=== PATIENT | male | born 1955 | race Caucasian/White ===

== ENCOUNTER 2019-12-03 13:04 | Outpatient (CLI) | payer MEDICARE, BC, SELFPAY ==
--- NOTE | 2019-12-03 13:16 | MR_ITS ---
WS: [id number] MRI RIGHT KNEE NONCONTRAST TECHNIQUE: Axial PD, coronal PD fat sat, coronal PD, sagittal PD, and sagittal PD fat-sat images obta ined. CLINICAL INFORMATION: PAIN IN R KNEE COMPARISON: None. FINDINGS: Normal anterior cruciate ligament. Normal PCL. Hypertrophic patella. Distal quadriceps and patella te ndons are intact. Prepatellar and infrapatellar soft tissue edema. Small radial tear involving the an terior horn lateral meniscus extending to the articular surface. Medial meniscus is normal in appeara nce. Moderate chondromalacia patella. Narrowing of patellofemoral articulation. No subchondral edema in th e underlying patella. Medial and lateral collateral ligaments are normal. Normal popliteal fossa. MR/MR knee RT wo con* [id number] IMPRESSION: 1. Normal anterior and posterior cruciate ligaments. 2. Small radial tear involving the anterior horn lateral meniscus extending to the articular surface with mild blunting. 3. Moderate chondromalacia patella with narrowing of the patellofemoral articu lation. No subchondral edema. 4. Moderate chondromalacia involving the medial and lateral joint compartments with joint space narrowing.
== END 2019-12-03 13:05 | disposition home or self-care (01) ==
LOC: RADWPI 13:15
PROVIDERS: Family Provider Physician Assistant Medical; PCP Nurse Practitioner Family; Visit Provider Nurse Practitioner Family
DX: M25.561 Pain in right knee (principal); M22.41 Chondromalacia patellae, right knee; S83.281A Other tear of lateral meniscus, current injury, right knee, initial encounter; X58.XXXA Exposure to other specified factors, initial encounter
CPT/HCPCS: 73721

== ENCOUNTER 2019-12-15 08:33 | Outpatient (CLI) | payer MEDICARE, SELFPAY ==
--- NOTE | 2019-12-15 | USCV_ITS ---
SairaJose D Age: 64 Gender: M : 1955 Exam Date: 12/15/2019 09:03 Ordering Phys: Debora Marie Technologist: Yennifer Brooks Exam Location: [facility] – [place] Indication: ? AAA ON XRAY HISTORY: Diameter (cm) AP x Transverse x Length Velocity (cm/s) Waveform Prox Aorta: 1.86 x 1.55 x 1.70 Mid Aorta: 1.55 x 1.69 x 1.66 Distal Aorta: 1.89 x 1.69 x 1.50 Right Iliac Prox: x x Left Iliac Prox: x x Stent Prox Landing x x Aneurysmal Sac Max x x Lt Lat Sac Dim Rt Lat Sac Dim Stent Dist Landing x x Right Iliac Stent x x Left Iliac Stent x x Right Renal Art Left Renal Art FINDINGS: Technically limited exam CONCLUSIONS No evidence of abdominal aortic aneurysm. Iliac arteries not well visualized. Everette Turcios MD (Electronically Signed) Final Date: 15 December 2019 09:28 S
== END 2019-12-15 08:34 | disposition home or self-care (01) ==
PROVIDERS: Family Provider Physician Assistant Medical; PCP Nurse Practitioner Family; Visit Provider Nurse Practitioner Family
DX: I77.9 Disorder of arteries and arterioles, unspecified (principal)
CPT/HCPCS: 76706

== ENCOUNTER 2019-12-29 06:00 | Outpatient (RCR) | payer MEDICARE, SELFPAY | END 2020-01-01 23:59 | disposition home or self-care (01) | LOC: WPT 06:00 | PROVIDERS: Family Provider Physician Assistant Medical; PCP Nurse Practitioner Family; Referring Provider Nurse Practitioner Family; Visit Provider Nurse Practitioner Family | DX: M54.9 Dorsalgia, unspecified (principal) | CPT/HCPCS: 97110; 97163; G0283 ==

== ENCOUNTER 2020-01-02 06:00 | Outpatient (RCR) | payer MEDICARE, SELFPAY | END 2020-02-01 23:59 | disposition home or self-care (01) | LOC: WPT 06:00 | PROVIDERS: Family Provider Physician Assistant Medical; PCP Nurse Practitioner Family; Referring Provider Nurse Practitioner Family; Visit Provider Nurse Practitioner Family | DX: G89.29 Other chronic pain (principal); M54.9 Dorsalgia, unspecified | CPT/HCPCS: 97110; 97112; 97163; G0283 ==

== ENCOUNTER 2020-02-02 06:00 | Outpatient (RCR) | payer MEDICARE, SELFPAY | END 2020-03-02 23:59 | disposition home or self-care (01) | LOC: WPT 06:00 | PROVIDERS: PCP Nurse Practitioner Family; Visit Provider Nurse Practitioner Family | DX: M54.9 Dorsalgia, unspecified (principal) | CPT/HCPCS: 97110; 97112 ==

== ENCOUNTER 2020-03-03 06:00 | Outpatient (RCR) | payer MEDICARE, SELFPAY | END 2020-04-02 23:59 | disposition home or self-care (01) | LOC: WPT 06:00 | PROVIDERS: PCP Nurse Practitioner Family; Visit Provider Nurse Practitioner Family | DX: M54.9 Dorsalgia, unspecified (principal) | CPT/HCPCS: 97110 ==

== ENCOUNTER 2020-05-24 08:27 | Outpatient (CLI) | payer MEDICARE, OTHER, SELFPAY ==
--- NOTE | 2020-05-24 08:50 | MR_ITS ---
WS: [id number] MRI LUMBAR SPINE NONCONTRAST HISTORY: CHRONIC LOW BACK PAIN COMPARISON: None available. TECHNIQUE: Sagittal and axial multisequence imaging is submitted. Mild narrowing of the cervical canal the C6 level due to osteophyte disease and facet arthritis. Mild increase in thoracic kyphosis. 5 lumbar type vertebral bodies and the S1 vertebral body is lumbarized. This numbering pattern will b e important if surgery is ever contemplated in this patient. Mild disc space narrowing and desiccatio n throughout the cervical spine. The S1-S2 disc is rudimentary. No fractures. Hypertrophic osteophytes throughout the lumbar spine. Conus terminates normally at L1-2 disc level. L1-L2: Mild annular disc bulging and facet arthritis. No stenosis. L2-L3: Mild annular disc bulging and osteophytic ridging. Mild bilateral facet joint arthritis, LEFT greater than RIGHT. Mild LEFT foraminal narrowing. L3-L4: Mild annular disc bulging with moderate facet and ligamentum flavum arthritis. No significant stenosis. L4-L5: Mild annular disc bulging with far LEFT foraminal disc fissures. Mild bilateral facet joint ar thritis. Small amount of fluid in the LEFT facet joint. Mild bilateral foraminal narrowing, LEFT grea ter than RIGHT. L5-S1: Severe facet joint arthritis with annular disc bulging. No focal disc protrusion. Moderate mariana tral and subarticular recess stenosis. Foramen are only minimally narrowed. Significant encroachment upon the S1 nerve roots. S1-S2 disc space is rudimentary. There is annular disc bulging and marked facet arthritis. Disc osteo phyte complex extends into the LEFT subarticular recess and abuts the S2 nerve root. Moderate central , foraminal and subarticular recess stenosis. MR/MR lumbar spine wo con* [id number] IMPRESSION: 1. 5 lumbar type vertebral bodies with the S1 vertebral body being lumbarized with a rudimentary S1-S2 disc. 2. Moderate central, and bilateral subarticular recess stenosis at L5-S1 with significant encroachment upon the S1 nerve roots. 3. Moderate central, foraminal and subarticular recess stenosis at S1-S2 with a disc protrusion into the LEFT subarticular recess. 4. Multilevel facet joint arthritis throughout the lumbar spine as described a geraldo. Most significant at L5-S1 and S1-S2.
== END 2020-05-24 08:28 | disposition home or self-care (01) ==
LOC: RADWPI 08:33
PROVIDERS: PCP Nurse Practitioner Family; Visit Provider Nurse Practitioner Family
DX: M54.5 Low back pain (principal); M48.07 Spinal stenosis, lumbosacral region; M46.96 Unspecified inflammatory spondylopathy, lumbar region
CPT/HCPCS: 72148

== ENCOUNTER → 2020-06-29 08:31 | Outpatient (BNVA) | payer MEDICARE, OTHER, SELFPAY | PROVIDERS: PCP Nurse Practitioner Family; Visit Provider Orthopaedic Surgery | DX: M54.9 Dorsalgia, unspecified (principal) | CPT/HCPCS: 72100 ==

== ENCOUNTER → 2020-07-13 08:54 | Outpatient (BNVA) | payer MEDICARE, OTHER, SELFPAY | PROVIDERS: PCP Nurse Practitioner Family; Referring Provider Orthopaedic Surgery; Visit Provider Anesthesiology Pain Medicine | DX: G89.29 Other chronic pain (principal); M48.062 Spinal stenosis, lumbar region with neurogenic claudication; M47.816 Spondylosis without myelopathy or radiculopathy, lumbar region; M54.2 Cervicalgia; Z79.899 Other long term (current) drug therapy | CPT/HCPCS: 99204 ==

== ENCOUNTER → 2020-07-19 12:05 | Outpatient (BNVA) | payer MEDICARE, OTHER, SELFPAY | PROVIDERS: PCP Nurse Practitioner Family; Visit Provider Anesthesiology Pain Medicine | DX: M48.062 Spinal stenosis, lumbar region with neurogenic claudication (principal); M54.16 Radiculopathy, lumbar region | CPT/HCPCS: 64483; 64484; J1040; J3490 ==

== ENCOUNTER → 2020-08-03 10:17 | Outpatient (BNVA) | payer MEDICARE, OTHER, SELFPAY | PROVIDERS: PCP Nurse Practitioner Family; Visit Provider Anesthesiology Pain Medicine | DX: M48.062 Spinal stenosis, lumbar region with neurogenic claudication (principal); M47.816 Spondylosis without myelopathy or radiculopathy, lumbar region; M54.2 Cervicalgia | CPT/HCPCS: 99213; 99214 ==

== ENCOUNTER → 2020-08-11 13:13 | Outpatient (BNVA) | payer MEDICARE, OTHER, SELFPAY | PROVIDERS: PCP Nurse Practitioner Family; Visit Provider Anesthesiology Pain Medicine | DX: M54.16 Radiculopathy, lumbar region (principal); M48.062 Spinal stenosis, lumbar region with neurogenic claudication | CPT/HCPCS: 64483; 64484; J1040; J3490 ==

== ENCOUNTER → 2020-09-15 10:44 | Outpatient (BNVA) | payer MEDICARE, OTHER, SELFPAY | PROVIDERS: PCP Nurse Practitioner Family; Visit Provider Orthopaedic Surgery | DX: Z11.59 Encounter for screening for other viral diseases (principal); M48.062 Spinal stenosis, lumbar region with neurogenic claudication | CPT/HCPCS: 87635 ==

== ENCOUNTER 2020-09-22 13:04 | Inpatient (IN) | payer MEDICARE, OTHER, SELFPAY ==
[2020-09-20 12:58] VITALS: BMI 38.3
--- NOTE | 2020-09-20 13:13 | ANES.PREANE2 ---
Pre-Anesthetic Assessment Pre-Anesthetic Assessment: Height/Weight: Height 1.8 m Weight 124.738 kg Preop Diagnosis: back pain Proposed Procedure: Operation Date: 09/22/20 07:00 Proposed Procedures p Spinal Fusion L4/5 L5/S1 PLIF [id number], 42219, 81769, 51454, 00513, 15083(Not Applicable) - Uziel Carlos DO Familial anesthetic complications: None Social: Comment: Former smoker - quit 26 years ago Pulmonary: Pulmonary: COPD and Sleep apnea (cpap) Comments: COPD - placed on inhalers 6-7 years, saw his PCP on Sunday and she added different inhaler (wixela inhub - fluticasone/salmeterol) to help build his lungs up. Patient is not on oxygen. Patient is able to walk up a couple flights of stairs ok, but requires use of handrail d/t knee pain. He gets moderately out of breath with 2 flights. Able to feed goats, chickens, dogs at home. States his COPD has been about baseline for 2 years with no significant increase in symptoms. No recent respiratory infections, viruses, colds, pneumonia (last pneumonia 35 years ago). CV/HEM: CV/HEM: HTN and KY (approximately 25 years ago he had alight heart attack) Comments: Denies chest pains, no stents in heart, no balloon angioplasties, his [place] just showed up on an EKG. So he quite smoking. EKG on sunday at PCP - Everything looked good. Metabolic: Metabolic: Morbid obesity Musc/skel: Musc/skel: Lower Back Pain and OA/DJD Anesthetic Plan: ASA status: 3 Anesthesia: General Other: Patient educated on higher risk of requiring post-op ventilation and respiratory events intra-op with COPD. He states he would like to proceed. He has relatively good functional status, is not on oxygen, and no longer smokers. Informed patient to continue to use inhalers up to the morning of surgery. Risk of > 500 ml blood loss (7ml/kg in children): Yes, adequate IV access and fluids planned PFSH Anesthesia PFSH: Social History Smoking and tobacco status: former smoker Alcohol intake: never History of recent travel: No Data Anesthesia Cardiac Studies: No Data to Display
[2020-09-22] VITALS (15 sets, daily range): BP systolic 107–181; BP diastolic 66–84; PULSE 58–78; RESP 16–20; TEMP 36.1–36.6; O2SAT 94–100
--- NOTE | 2020-09-22 | SCC_ITS ---
Procedure Done: 1. L4/5 Interbody fusion with posterolateral fusion 2. L5/S1 PLIF 3. Instrumentation L4-S1 4. Cage at L4/5 5. Cage at L5/S1 6. Laminectomy L4 7. Laminectomy L5 8. use of autograft from same incision 9. allograft 10. Bone marrow aspirate from iliac crest 11. L4/5 Spondylolisthesis 236.9 seconds of fluoroscopic guidance, for a cumulative dose of 315.69 mGy, was provided to Dr. Carlos by the radiology department. C-arm images of the lumbar spine were saved for the patient's permanent record. [facility]
--- NOTE | 2020-09-22 | XR_ITS ---
WS: [id number] Lumbar spine, 4 C-arm fluoroscopy views of the lower lumbar spine in the OR, 09/22/2020 Clinical Data: L4/L5 L5/S1 PLIF Comparison: Lumbar spine, 06/29/2020. Findings: The patient has bilateral lumbar fusion with pedicle screws at L4, L5 and S1. The screws are connecte d with rods. There is artificial disc material at L4-L5 and L5-S1. XR/XR lumbar spine 2-3V* [id number] Impression: Posterior lumbar fusion from L4 through S1.
[2020-09-22] MEDS: sodium chloride 0.9% 1,000 ML 30 ML IV (06:19)
[2020-09-22] MEDS: gabapentin 300 mg Capsule PO (06:20)
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
--- NOTE | 2020-09-22 06:48 | W.PM.OPSUD ---
Surgery/Procedure H&P Update DATE OF PROCEDURE: September 22, 2020 DATE H&P PERFORMED: 09/22/20 PREOP DIAGNOSIS: lumbar stenosis PLANNED PROCEDURE: Operation Date: 09/22/20 07:00 Proposed Procedures p Spinal Fusion L4/5 L5/S1 PLIF [id number], 84730, 18395, 26566, 98140, (Not Applicable) - Uziel Carlos DO
[2020-09-22] MEDS: heparin, porcine 1,000 unit/mL INJ 10 mL 10000 UNIT IRRIGATION (08:17)
[2020-09-22] MEDS: vancomycin 1,000 MG SDV 1000 MG XX (11:37)
--- NOTE | 2020-09-22 12:49 | SUR.PHASEI ---
PT AWAKE ALERT ON 3LNC PT IS TALKING NONSTOP, DENIES PAIN , PT WITH DRESSING D/I ABD BINDER
--- NOTE | 2020-09-22 13:15 | SUR.PHASEI ---
1255 PT TO FLOOR PER BED DRESSING REMAINS D/I ABD BINDER IN PLACE PT AWKE ALERT LAUGHING TALKING NON STOP, DENIES PAIN PT MOVES BILAT FEET STRONGLY TO COMMAND DRAIN COMPRESSED AND EMPTIED EARLIER OF 100ML SANGUINEOUS FLUID. HANDOFF AT BEDSIDE WITH EILEEN MYLES. CALLED AND IS ON HER WAY UP TO ROOM.
[2020-09-22] MEDS: HYDROcodone-acetaminophen 5-325 mg Tablet PO ×2 (15:06→22:03)
--- NOTE | 2020-09-22 16:12 | PM.OP ---
Operative Report Date of procedure: September 22, 2020 Pre-op Diagnosis: lumbar stenosis; Lumbar spondylolisthesis L4/5 Post-op diagnosis: same Procedure Done: 1. L4/5 Interbody fusion with posterolateral fusion 2. L5/S1 PLIF 3. Instrumentation L4-S1 4. Cage at L4/5 5. Cage at L5/S1 6. Laminectomy L4 7. Laminectomy L5 8. use of autograft from same incision 9. allograft 10. Bone marrow aspirate from iliac crest 11. L4/5 Spondylolisthesis Surgeon: Uziel Carlos Anesthesia: General Estimated blood loss (mL): 600 Condition: stable Disposition: PACU Procedure: 1. L4/5 Interbody fusion with posterolateral fusion 2. L5/S1 PLIF 3. Instrumentation L4-S1 4. Cage at L4/5 5. Cage at L5/S1 6. Laminectomy L4 7. Laminectomy L5 8. use of autograft from same incision 9. allograft 10. Bone marrow aspirate from iliac crest 11.L4/5 Spondylolisthesis Patient was brought to the operative suite placed in the prone position after undergoing anesthesia and having neuro monitoring hooked up. All areas impingement well-padded. Patient was prepped and draped in normal sterile fashion. Skin incision was made from L4-S1. These levels were confirmed under C-arm guidance. Thoracolumbar fascia was split and then subperiosteal dissection was made from L4 out to the transverse processes down to S1 out to the sacral ala. Retractors were placed. Tension was then placed on putting in the pedicle screws. Drill was used followed by gearshift followed by pedicle probe this was done on all levels 2 screws were placed at L4 2 screws were placed at L5 and 2 screws were placed into the sacral ala cortical screws were placed in S1. The screws were all six 5 x 50 [place] screws. Next attention was brought to the L5-S1 level. A laminectomy was performed at L5. This was done in order to facilitate decompressing the S1 nerve. The laminectomy was performed using high-speed bur Kerrison rongeurs and curettes. Ligamentum flavum was taken down from L5-S1. Next attention was brought to doing laminectomy performed at the L for level. High-speed bur was used along with Kerrison rongeur. Once laminectomy was taken down at L4 and L5. The laminectomy again was also performed for decompression of the L5 nerve root. Bone graft was used taken from the laminectomy sites. This was the autograft that was used in the bone graft. Facetectomies of L4-5 and L5-S1 were performed bilaterally. This is again used using high-speed bur and Kerrison rongeur. This was on the right side and then on the left side partial facetectomy was performed but 75% of the facet was taken down in order to facilitate placing the cages. Edges brought to the L5-S1 level first. Disc was identified the S1 nerve root was retracted L5 nerve root was identified bipolar was used to coagulate bleeding. The space was identified osteotome was used to get into the disc space at L5-S1. And then up to a size shaver 7 shaver was used. Pituitary was used to remove the disc fragments. Once disk removed osteoamp sponges were packed into the disc base. And then a Evans cage was packed into the disc base this cage was packed with osteoamp. C-arm ensured that the disc cage was in appropriate position. It was brought to the L4-5 level again partial facetectomy was performed about 75% of the facet. And the disc base was identified bipolar was used to clear the bleeding vessels. Nerve retractor was placed the L4 and L5 nerve were identified and tommie were used up to size 10. Size 10 cage was packed with osteoamp. Prior to placing the cage osteamp sponges were packed into the anterior part of the disc base. And then the cage was inserted into the L4-5 disc space. The cage was then inserted. And felt to be in preposition based on C-arm guidance. Next attention was brought to placing the rods from L4-S1. This is done by placing rods in the [place] of L4-L5 and S1 caps were then placed onto the screws. This was done bilaterally. The caps were then torqued down. Next attention was brought to decorticating the TPs and facet joints. The ostium fibers and autograft and ostium sponges were then packed into the lateral gutters. Some bank powder was placed into this area as well. A Hemovac drain was placed. And then the thoracolumbar fascia was closed with strata fear 0 suture. Subcu was closed with 2 oh strata sphere powder was placed in this level. And then the skin was closed with 4 oh strata sphere and the mesh glue was put on the incision. Patient was then transferred to the PACU in stable condition.
--- NOTE | 2020-09-22 16:29 | PC.NURSE ---
OUTPUT THIS NURSE EMPTIED 200ML OF BLOOD FROM PATIENT'S HEMOVAC. THIS NURSE CALLED DR. IZAGUIRRE AND LEFT A MESSAGE ON HIS PHONE.
[2020-09-22] MEDS: docusate sodium 100 mg Capsule PO (17:34)
[2020-09-22] MEDS: methocarbamol 750 mg Tablet PO (17:34)
[2020-09-22] MEDS: gabapentin 300 mg Capsule 1500 MG PO (17:34)
[2020-09-22] MEDS: sulfaSALAzine 500 mg Tablet 1000 MG PO ×2 (17:34→20:39)
--- NOTE | 2020-09-22 18:24 | P.CONIM_ITS ---
Providers/Reason For Consult Consulting Physican/Specialty*: Orthopedic surgery Reason for Consult*: Medical Management Attending Physician: Uziel Carlos DO Primary Care Provider: Debora Marie History of Present Illness History of Present Illness 65-year-old male with a past medical history significant for hypertension, hyperlipidemia, chronic obstructive pulmonary disease, neuropathy, depression and lumbar stenosis who was admitted to orthopedic surgery and taken to the OR. Medicine was consulted postop for medical management. patient was stable at time of my evaluation. Pain was under control. No recent fever, chills, nausea vomiting. Review of Systems General: Reports: 10 or more systems reviewed and unremarkable except in HPI and below Meds/Allergies Home Medications and Allergies Home Medications Medication Instructions Recorded Confirmed Last Taken Type amlodipine 10 mg tablet 10 mg PO DAILY 06/29/20 09/22/20 09/22/20 03:00 History atorvastatin 40 mg tablet 40 mg PO DAILY 06/29/20 09/22/20 09/21/20 History clonazepam 1 mg tablet 1 mg PO .prn tab 06/29/20 09/22/20 09/21/20 06:00 History diphenoxylate-atropine 2.5 10 ml PO BID PRN 06/29/20 09/22/20 09/21/20 History mg-0.025 mg/5 mL oral liquid adalimumab 40 mg/0.8 mL 40 mg SUBCUT Q14D 07/13/20 09/22/20 09/14/20 History subcutaneous pen kit albuterol sulfate 90 mcg/actuation 1 inh INHALATION QID 07/13/20 09/22/20 09/14/20 History aerosol inhaler gabapentin 600 mg tablet 1,500 mg PO BID tab 07/13/20 09/22/20 09/21/20 19:00 History hydrochlorothiazide 25 mg tablet 25 mg PO DAILY 07/13/20 09/22/20 09/21/20 History methocarbamol 750 mg tablet 750 mg PO Q8H 07/13/20 09/22/20 09/21/20 History metoprolol tartrate 25 mg tablet 25 mg PO DAILY 07/13/20 09/22/20 09/22/20 03:00 History sulfasalazine 500 mg tablet 1 g PO QID tab 07/13/20 09/22/20 09/21/20 History E0748 Bone Growth Stimulator #1 ea 08/17/20 08/17/20 Unknown Rx aspirin [Aspir-81] 81 mg PO DAILY 09/20/20 09/22/20 09/19/20 History azathioprine 300 mg PO DAILY 09/20/20 09/22/20 09/21/20 History ergocalciferol (vitamin D2) 1,250 mcg PO DAILY 09/20/20 09/22/20 09/21/20 History [Vitamin D2] fluoxetine 40 mg PO DAILY 09/20/20 09/22/20 09/21/20 History folic acid 1 mg PO DAILY 09/20/20 09/22/20 09/21/20 12:00 History loratadine 10 mg PO DAILY 09/20/20 09/22/20 09/21/20 History losartan 100 mg PO DAILY 09/20/20 09/22/20 09/22/20 03:00 History montelukast 10 mg PO DAILY 09/20/20 09/22/20 09/21/20 History omega-3 fatty acids [Fish Oil] 1,000 mg PO DAILY 09/20/20 09/22/20 07/23/20 History spironolactone 25 mg PO DAILY 09/20/20 09/22/20 09/21/20 History tiotropium bromide [Spiriva with 1 cap INHALATION DAILY 09/20/20 09/22/20 09/14/20 History HandiHaler] triamcinolone acetonide 1 applic TOPICAL BID 09/20/20 09/22/20 Unknown History Allergies Allergy/AdvReac Type Severity Reaction Status Date / Time No Known Allergies Allergy Verified 08/17/20 09:40 Current Medications Current Medications Generic Name Dose Route Start Last Admin Trade Name Freq PRN Reason Stop Dose Admin Hydrocodone Bitart/Acetaminophen 1 - 2 tab 09/22/20 13:36 09/22/20 15:06 Hydrocodone-Acetaminophen 5-325 Mg Tablet PO 1 tab Q4H PRN Administration MODERATE TO SEVERE PAIN Docusate Sodium 100 mg 09/22/20 18:00 09/22/20 17:34 Docusate Sodium 100 Mg Capsule PO 100 mg BID JAVID Administration Gabapentin 1,500 mg 09/22/20 18:00 09/22/20 17:34 Gabapentin 300 Mg Capsule PO 1,500 mg BID JAVID Administration Cefazolin Sodium/Dextrose 2 gm in 50 mls @ 100 mls/hr 09/22/20 19:00 09/22/20 17:33 Kefzol IV 09/23/20 11:29 100 mls/hr Q8H JAVID Administration Protocol Methocarbamol 750 mg 09/22/20 17:00 09/22/20 17:34 Methocarbamol 750 Mg Tablet PO 750 mg Q8H JAVID Administration Non-Formulary Medication 40 mg 09/22/20 13:45 09/22/20 15:04 Adalimumab [Humira Pen Irvnuf-Af-Xg Start] SUBCUT Not Given Q14D JAVID Sulfasalazine 1,000 mg 09/22/20 17:00 09/22/20 17:34 Sulfasalazine 500 Mg Tablet PO 1,000 mg QID JAVID Administration Protocol PFSH Acute PFSH: Medical History (Updated 09/22/20 @ 18:30 by Melvin Reyes MD) COPD (chronic obstructive pulmonary disease) Depression Hyperlipidemia Hypertension Neuropathy Surgical History (Updated 09/22/20 @ 18:30 by Melvin Reyes MD) History of back surgery Social History Smoking and tobacco status: former smoker Alcohol intake: never History of recent travel: No Vitals/I&O/Wt Last Vital Signs Temp 97.8 F 09/22/20 15:15 Pulse 67 09/22/20 15:15 Resp 16 09/22/20 15:15 BP 142/84 09/22/20 15:15 Pulse Ox 97 09/22/20 15:15 09/22/20 09/22/20 09/22/20 06:59 14:59 22:59 Intake Total 1750 / 1750 Output Total 1350 / 1350 300 / 1650 Balance 400 / 400 -300 / 100 Physical Exam Const: COMMON NORMALS: no acute distress Neck/C-Spine: COMMON NORMALS: no JVD Chest: COMMONS NORMALS: normal inspection of the chest Resp: COMMON NORMALS: normal respiratory effort, No retractions, No use of accessory muscles and clear to auscultation bilaterally AUSCULTATION: clear to auscultation bilaterally Cardio: COMMON NORMALS: no JVD, regular rate, regular rhythm, S1 normal heart sound present, S2 normal heart sound present and No murmurs present (Cardio) RATE: regular rate RHYTHM: regular rhythm HEART SOUNDS: S1 normal heart sound present and S2 normal heart sound present GI: COMMON NORMALS: Normal to inspection, nondistended, normoactive bowel sounds present, Soft to palpation, non-tender and No hepatosplenomegaly present PALPATION: Yes Soft to palpation and Yes No hepatosplenomegaly present Extremity: COMMON NORMALS: normal to inspection Urinary Catheter Management^: F: Cath Placed During This Visit: yes Urinary Catheter Date of Insertion: 09/22/20 Urinary Catheter Time of Insertion: 07:30 A&P Assessment and plan (1) Hypertension: Status: Acute (2) Hyperlipidemia: Status: Acute (3) COPD (chronic obstructive pulmonary disease): Status: Acute (4) Neuropathy: Status: Acute (5) Depression: Status: Acute Lumbar stenosis S/p - operative procedure 1. L4/5 Interbody fusion with posterolateral fusion 2. L5/S1 PLIF 3. Instrumentation L4-S1 4. Cage at L4/5 5. Cage at L5/S1 6. Laminectomy L4 7. Laminectomy L5 8. use of autograft from same incision 9. allograft 10. Bone marrow aspirate from iliac crest 11. L4/5 Spondylolisthesis - Managment per orthopedic surgery - Pain control - PT/OT consult Hypertension Dyslipidemia COPD Neuropathy Anxiety Depression Plan: Labs in AM Continue current medication as ordered Consult Attestations Medical Necessity Statement: Continue hospitalization for routine post op care. Time Spent in Patient Care: Greater than 35 minutes (>than 50% of time spent in counselling and/or direct pt care on unit) . Coding Level of Care Code Acute Developer Architect for [facility] Fwd Diagnoses Hypertension I10 Hyperlipidemia E78.5 COPD (chronic obstructive pulmonary disease) J44.9 Neuropathy G62.9 Depression F32.9
--- NOTE | 2020-09-22 18:31 | ANE.PACU2 ---
Inpatient post-anesthesia follow up: Airway intact: Yes Vital signs: Temperature 97.8 F Pulse Rate 67 Respiratory Rate 16 Blood Pressure 142/84 Pulse Oximetry 97 Oxygen Delivery Me thod Nasal Cannula Oxygen Flow Rate 3 Fraction of Inspir ed Oxygen Hydration adequate: Yes Nausea and vomiting: No Pain level: 3 Mental status: Baseline
[2020-09-22] MEDS: ondansetron 2 mg/ML SDV 2 mL 4 MG IVP (18:41)
--- NOTE | 2020-09-22 18:44 | PC.NURSE ---
SHIFT SUMMARY PATIENT HAS DONE WELL SINCE ARRIVING TO THE FLOOR. GOOD URINE OUTPUT. VITALS STABLE. PATIENT HAS HAD 350ML OF BLOOD OUTPUT IN THE HEMOVAC. DR. IZAGUIRRE NOTIFIED. NAUSEA X1. THIS NURSE ADMINISTERED ZOFRAN. PAIN WELL CONTROLLED. CONTINUE TO MONITOR.
[2020-09-23] VITALS (10 sets, daily range): BP systolic 121–126; BP diastolic 72–77; PULSE 77–90; RESP 16–18; TEMP 36.6–37.2; O2SAT 92–96
[2020-09-23] MEDS: methocarbamol 750 mg Tablet PO ×2 (02:11→08:04)
[2020-09-23 02:37] LABS: Basophils % 0.3 %; Eosinophils % 0.1 %; Hematocrit 35.4 % (42.0-52.0); Lymphocytes # 1.8 10^3/uL (0.8-4.8); Lymphocytes % 14.6 %; Mean Corpuscular HGB Conc 31.1 g/dL (30.0-36.0); Mean Corpuscular Hemoglobin 32.5 pg (28.0-34.0); Mean Corpuscular Volume 104.7 fL (80-94); Mean Platelet Volume 11.1 fL (7.4-10.4); Monocytes # 1.2 10^3/uL (0.2-0.9); Monocytes % 9.8 %; Neutrophils # 9.33 10^3/uL (1.8-7.7); Neutrophils % 74.6 %; Nucleated Red Blood Cells % 0 %; Platelet Count 202 10^3/cmm (130-400); Red Blood Count 3.38 10^6/uL (4.1-5.3); Red Cell Distribution Width 14.2 % (12.1-15.1); White Blood Count 12.5 10^3/uL (4.0-10.0)
[2020-09-23 02:55] LABS: Alanine Aminotransferase 18 U/L (0-41); Albumin Level 3.8 g/dL (3.5-5.2); Alkaline Phosphatase 46 IU/L (40-130); Aspartate Amino Transferase 31 U/L (0-40); Blood Urea Nitrogen 26 mg/dL (8-23); Calcium 8.3 mg/dL (8.5-10.5); Carbon Dioxide 24 mmol/L (22-29); Chloride 102 mmol/L (98-107); Globulin 2.3 g/dL (1.3-4.6); Glomerular Filtration Rate 74.8 mL/min (90-130); Glucose 137 mg/dL (65-115); Osmolality Calculated 287 mOsm/kg (285-295); Sodium 135 mmol/L (136-145); Total Bilirubin 0.5 mg/dL (0.15-1.2); Total Protein 6.1 g/dL (6.6-8.7)
[2020-09-23 03:06] LABS: Anion Gap 13.4 (5-19); Potassium 4.4 mmol/L (3.5-5.1)
[2020-09-23] MEDS: enoxaparin 40 mg/0.4 mL Syringe SUBCUT (05:20)
[2020-09-23] MEDS: HYDROcodone-acetaminophen 5-325 mg Tablet PO ×2 (05:23→10:53)
[2020-09-23] MEDS: atorvastatin 40 mg Tablet PO (08:03)
[2020-09-23] MEDS: sulfaSALAzine 500 mg Tablet 1000 MG PO (08:03)
[2020-09-23] MEDS: omega-3 fatty acids 1,000 mg Capsule 1000 MG PO (08:03)
[2020-09-23] MEDS: losartan 50 mg Tablet 100 MG PO (08:04)
[2020-09-23] MEDS: montelukast sodium 10 mg Tablet PO (08:04)
[2020-09-23] MEDS: aspirin 81 mg EC Tablet PO (08:04)
[2020-09-23] MEDS: folic acid 1 mg Tablet PO (08:04)
[2020-09-23] MEDS: docusate sodium 100 mg Capsule PO (08:04)
[2020-09-23] MEDS: fluoxetine 20 mg Capsule 40 MG PO (08:04)
[2020-09-23] MEDS: metoprolol tartrate 25 mg Tablet PO (08:04)
[2020-09-23] MEDS: hydroCHLOROthiazide 25 mg Tablet PO (08:04)
[2020-09-23] MEDS: loratadine 10 mg Tablet PO (08:05)
[2020-09-23] MEDS: spironolactone 25 mg Tablet PO (08:05)
[2020-09-23] MEDS: gabapentin 300 mg Capsule 1500 MG PO (08:05)
[2020-09-23] MEDS: amlodipine 10 mg Tablet PO (08:05)
--- NOTE | 2020-09-23 08:28 | P.DS_ITS ---
Discharge Providers Date of Admission: 09/22/20 13:04 Date of Discharge: September 23, 2020 Attending Provider at Admission: Uziel Carlos DO Attending Provider at Discharge: Uziel Carlos DO Primary Care Provider: Debora Marie Diagnoses at Discharge Discharge Diagnosis (1) Hypertension: Status: Acute (2) Hyperlipidemia: Status: Acute (3) COPD (chronic obstructive pulmonary disease): Status: Acute (4) Neuropathy: Status: Acute (5) Depression: Status: Acute Reason for Visit Reason for Visit: L4/5 L5/S1 PLIF [id number], [id number], [id number], Hospital Course Hospital Course Patient is doing well this morning. He was admitted on 09/22/2020 for a L4-5 L5- S1 plan for surgery. Patient tolerated surgery well. No events. Hemoglobin is 12.5 this morning. Plan is to discharge him today. He can be discharged after his drain is pulled which I said to pull at noon. Physical Exam Narrative: EXAM NARRATIVE: 5 5 strength bilateral lower extremities sensation intact. Drain put out 50 cc this morning. Urinary Catheter Management^: F: Cath Placed During This Visit: yes Urinary Catheter Date of Insertion: 09/22/20 Urinary Catheter Time of Insertion: 07:30 Discharge Data Data Completed and Pending: Completed Studies During Hospitalization Category Date Time Status XR lumbar spine 2 -3V* [id number] Routine Exams 09/22/20 Completed Pending at discharge Category Date Time Status C-arm Fluoroscopy [id number] Routine Exams 09/22/20 05:48 Taken Labs from last 24 hours 09/23/20 09/23/20 02:10 02:10 WBC 12.5 H RBC 3.38 L Hgb 11.0 L Hct 35.4 L MCV 104.7 H MCH 32.5 MCHC 31.1 RDW 14.2 Plt Count 202 MPV 11.1 H Neut % (Auto) 74.6 Lymph % (Auto) 14.6 Cotton % (Auto) 9.8 Eos % (Auto) 0.1 Baso % (Auto) 0.3 Neut # (Auto) 9.33 H Lymph # (Auto) 1.8 Cotton # (Auto) 1.2 H Eos # (Auto) 0.0 Baso # (Auto) 0.0 Nucleated RBC % (a uto) 0 Nucleated RBCs # 0.0 Sodium 135 L Potassium 4.4 Chloride 102 Carbon Dioxide 24 Anion Gap 13.4 BUN 26 H Creatinine 1.0 GFR Calculation 74.8 L Glucose 137 H Calculated Osmolal ity 287 Calcium 8.3 L Total Bilirubin 0.5 AST 31 ALT 18 Alkaline Phosphata se 46 Total Protein 6.1 L Albumin 3.8 Globulin 2.3 Vitals: Last Vital Signs Temp 98.7 F 09/23/20 08:00 Pulse 88 09/23/20 08:00 Resp 18 09/23/20 08:00 BP 124/77 09/23/20 08:04 Pulse Ox 95 09/23/20 08:00 Discharge Plan Discharge Patient Disposition: Home Condition: Stable Prescriptions: New hydrocodone-acetaminophen 5-325 mg tablet 1 - 2 tab PO .Q4-6H Qty: 40 RF: 0 Continued amlodipine 10 mg tablet 10 mg PO DAILY RF: 0 atorvastatin 40 mg tablet 40 mg PO DAILY RF: 0 clonazepam 1 mg tablet 1 mg PO .prn RF: 0 diphenoxylate-atropine 2.5-0.025 mg/5 mL liquid 10 ml PO BID PRN (Reason: Acid Reflux) RF: 0 gabapentin 600 mg tablet 1,500 mg PO BID RF: 0 Humira Pen Cqqzkv-SO-DZ Start 40 mg/0.8 mL pen injector kit 40 mg SUBCUT Q14D RF: 0 hydrochlorothiazide 25 mg tablet 25 mg PO DAILY RF: 0 methocarbamol [Robaxin-750] 750 mg tablet 750 mg PO Q8H RF: 0 metoprolol tartrate 25 mg tablet 25 mg PO DAILY RF: 0 sulfasalazine 500 mg tablet 1 g PO QID RF: 0 albuterol sulfate [ProAir HFA] 90 mcg/actuation HFA aerosol inhaler 1 inh inhalation QID RF: 0 (DME) E0748 Bone Growth Stimulator See Rx Instructions .Route .MEDSUPPLY Qty: 1 RF: 0 fluoxetine 40 mg Capsule 40 mg PO DAILY RF: 0 azathioprine 50 mg tablet 300 mg PO DAILY RF: 0 aspirin 81 mg Tablet,Delayed Release (Dr/Ec) 81 mg PO DAILY RF: 0 spironolactone 25 mg Tablet 25 mg PO DAILY RF: 0 triamcinolone acetonide 0.1 % ointment 1 applic TOPICAL BID RF: 0 folic acid 1 mg Tablet 1 mg PO DAILY RF: 0 montelukast 10 mg Tablet 10 mg PO DAILY RF: 0 ergocalciferol (vitamin D2) [Vitamin D2] 1,250 mcg (50,000 unit) Capsule 1,250 mcg PO DAILY RF: 0 losartan 100 mg Tablet 100 mg PO DAILY RF: 0 loratadine 10 mg Tablet 10 mg PO DAILY RF: 0 omega-3 fatty acids Capsule 1,000 mg PO DAILY RF: 0 Spiriva with HandiHaler 18 mcg Capsule, W/Inhalation Device 1 cap INHALATION DAILY RF: 0 Discharge Orders: Discharge Order (Routine); Ordered 09/23/20 Ordered By: Uziel Carlos Discharge Diet: Advance as tolerated Discharge Activity: Limit activity as instructed Activity Restrictions/Additional Instructions: Thank you for [facility] for your care! The following is a list of instructions, from your provider, to follow upon your discharge to ensure you have the optimal recovery from your recent injury orsurgery. Follow-up care is a moss part of your treatment and safety. Be sure to make and go to all appointments, and call your doctor if you are having problems. If you do not already have a follow-up appointment made, call Dr. Carlos office in the next 1-3 days to make follow up appointment for 2 weeks at [phone]. It is also a good idea to know your test results and keep a list of the medicines you take. Medications will be prescribed for you at your provider's discretion. These medications are to be used as instructed; if they are taken more often that prescribed they will not be refilled early and in most cases will not be refilled at all. > When a refill is needed,you should contact sheila [place] 2-3 business days before your prescription runs out. Medications will NOT be refilled by auto air conditioning apprentice providers after hours! > Many pain medications contain Tylenol (Acetaminophen). Do not consume more than 4,000 mg of Tylenol per day in total with any combination ofmedications. > Pain medications can cause constipation. Please use an over the counter stool softener as directed, while taking pain medications. Consulty our local pharmacist with questions or recommendations on stool softeners. If constipation persists, contact our office or your primary care provider. > While under our care,you are not to receive pain medications or other controlled substances from any other provider unless our office is notified and approves. Any attempts to do so will result in refusal to prescribe any further pain medications and possible dismissal from our practice. ? Your wound and/or dressing should remain clean and dry for 2 days after surgery. On postoperative day 2 (48 hours after your surgery) the dressing (if present) should be removed and it is okay to shower and get the incision wet. Pad dry afterwards. No further dressing should be required from that point on. Do not put any creams or ointments on theincision > It is normal for there to be a small amount of discharge (bloody or blood tinged) present from a surgical wound for the first 1-3days. > The wound should be examined twice a day for signs of infection. Mild redness or bruising is to be expected but indications that an infection maybe starting would include; An increase in redness, swelling, or discharge, a foul odor present around the incision, and/or a fever greater than 101 ?F ? Showering is permitted, however we ask that you do not take a bath, sit in a whirlpool / Jacuzzi, or go swimming for 1 month. For only the first 2 days after surgery, lt wilt be necessary for you to cover your wound/dressing with plastic and tape to keep it dry. ? Walking is essential for the healing process after surgery. We would like you to slowly advance your walking. This should be done on relatively flat clear ground (inside or out) or can be done on a treadmill. Remember this goal does not have to happen all at once, slowly increase your distance and duration. This can be broken into more more than one walk per day as tolerated. Patients who walk as directed after surgery rarely require Physical Therapy. In the unlikely event this issue arises your provider will direct hospital staff to make the appropriate arrangements. ? No lifting over 5 pounds {a gallon of milk) or bending/twisting until further notice. Each of these activities places an unnecessary amount of stress onto the body and can impede the delicate healing process. > Instead of bending at the waist, keep your back straight and bend at the knees. > Instead of twisting your torso, keep your back straight and turn your entire body with your feet. ? You may sleep in any position which makes you comfortable. Many patients find comfort sleeping in a reclining chair. It is not abnormal to have difficulty sleeping for the first several weeks following your surgery. We recommend trying Benadry! or Tylenol PM as directed to help with your sleeping difficulties. Both medications are over the counter and available withoutprescription. ? NO SMOKING!!! Smoking dramatically increases the probability of developing postoperative wound infections. ? Common complaints after lumbar and/or thoracic spine surgery include, but are not limited to: numbness and/or tingling in the legs, pain around the incision and surrounding tissues, muscle spasms, or stiffness of the middle to low back. Contact our office if these symptoms persist or if an acute change occurs. ? No driving for the first 3-5days, and not while taking narcotics until seen at your follow-up appointment and cleared. There are no restrictions for riding on short trips, however if you take a longer trip, arrangements should be made to make regular stops to get out of the vehicle and stretch . ? Swelling is an unfortunate event that will take place with any surgery and is the primary source of your postoperative discomfort. While walking and regular approved activities helps control inflammation, there are additional steps you can take to minimizeswelling. > Place ice over the surgical site and surrounding tissue for twenty minutes, followed by applying a low/medium heat (heating pad) for an additional twenty minutes every 1-2 hours as needed for painrelief. > You may use of over the counter anti-inflammatory medications (Ibuprofen, Motrin, Aleve, Advil, etc) as directed on the package label. These types of medicines wm significantly reduce the amount of discomfort you experience after surgery from swelling. It should be noted that if you have and allergy to any of these medications, or a history of ulcers or kidney disease you should consult you primary care provider prior to starting these medications. Discharge Attestations Time Spent in Discharge Care*: less than 30 min Quality Metrics Clinical Quality Measures During this hospital stay, did patient experience: None Coding Level of Care Code Acute Helicopter Engineer for g Fwd Diagnoses Hypertension I10 Hyperlipidemia E78.5 COPD (chronic obstructive pulmonary disease) J44.9 Neuropathy G62.9 Depression F32.9
[2020-09-23] MEDS: albuterol 8 gm MDI 2 PUFF INHALATION ×2 (08:32→12:07)
--- NOTE | 2020-09-23 10:05 | PC.NURSE ---
contacted pharmacy about imuran. awaiting arrival of med to administer.
--- NOTE | 2020-09-23 11:59 | PC.NURSE ---
drain removed. pt tolerated well.
--- NOTE | 2020-09-23 12:37 | PC.NURSE ---
pt iv taken out and intact. discharge instructions explained and questions answered.
--- NOTE | 2020-09-23 13:36 | PM.PN ---
Subjective Subjective: Interval history: Doing well overnight, no complaints, weaned to RA Vitals/I&O/Wt Last Vital Signs Temp 99.0 F 09/23/20 11:58 Pulse 83 09/23/20 12:12 Resp 16 09/23/20 12:12 BP 121/73 09/23/20 11:58 Pulse Ox 95 09/23/20 12:12 09/22/20 09/23/20 09/23/20 22:59 06:59 14:59 Intake Total 50 / 1800 50 / 1850 720 / 720 Output Total 625 / 1975 250 / 2225 500 / 500 Balance -575 / -175 -200 / -375 220 / 220 Physical Exam Const: COMMON NORMALS: no acute distress Neck/C-Spine: COMMON NORMALS: no JVD Chest: COMMONS NORMALS: normal inspection of the chest Resp: COMMON NORMALS: normal respiratory effort, No retractions, No use of accessory muscles and clear to auscultation bilaterally AUSCULTATION: clear to auscultation bilaterally Cardio: COMMON NORMALS: no JVD, regular rate, regular rhythm, S1 normal heart sound present, S2 normal heart sound present and No murmurs present (Cardio) RATE: regular rate RHYTHM: regular rhythm HEART SOUNDS: S1 normal heart sound present and S2 normal heart sound present GI: COMMON NORMALS: Normal to inspection, nondistended, normoactive bowel sounds present, Soft to palpation, non-tender and No hepatosplenomegaly present PALPATION: Yes Soft to palpation and Yes No hepatosplenomegaly present Extremity: COMMON NORMALS: normal to inspection Urinary Catheter Management^: F: Cath Placed During This Visit: yes Urinary Catheter Date of Insertion: 09/22/20 Urinary Catheter Time of Insertion: 07:30 Data : 09/23/20 02:10 09/23/20 02:10 A&P Assessment and plan (1) Hypertension: Status: Acute (2) Hyperlipidemia: Status: Acute (3) COPD (chronic obstructive pulmonary disease): Status: Acute (4) Neuropathy: Status: Acute (5) Depression: Status: Acute Lumbar stenosis S/p - operative procedure 1. L4/5 Interbody fusion with posterolateral fusion 2. L5/S1 PLIF 3. Instrumentation L4-S1 4. Cage at L4/5 5. Cage at L5/S1 6. Laminectomy L4 7. Laminectomy L5 8. use of autograft from same incision 9. allograft 10. Bone marrow aspirate from iliac crest 11. L4/5 Spondylolisthesis - Managment per orthopedic surgery - Pain control - PT/OT consult Hypertension Dyslipidemia COPD Neuropathy Anxiety Depression Plan: Ok to discharge from medical standpoint Will sign off Attestations Medical Necessity Statement*: Discharged per primary team Time Spent in Patient Care: 16 - 35 minutes (>than 50% of time spent in counselling and/or direct pt care on unit). Coding Level of Care Code Acute Alternative Dispute Resolution Mediator for g Fwd Diagnoses Hypertension I10 Hyperlipidemia E78.5 COPD (chronic obstructive pulmonary disease) J44.9 Neuropathy G62.9 Depression F32.9
--- NOTE | 2020-09-24 12:05 | PC.RESP ---
Pulmonary Rehab information sent to patient.
== END 2020-09-23 13:38 | disposition home or self-care (01) | DRG 455 ==
LOC: MEDSURG 13:05
PROVIDERS: Hospitalist; Admitting Provider Orthopaedic Surgery; PCP Nurse Practitioner Family; Visit Provider Orthopaedic Surgery
PROC: 0SG0071 Fusion of Lumbar Vertebral Joint with Autologous Tissue Substitute, Posterior Approach, Posterior Column, Open Approach (ICD-10-PCS; principal; 2020-09-22 07:00)
DX: M43.16 Spondylolisthesis, lumbar region (principal); M48.062 Spinal stenosis, lumbar region with neurogenic claudication; Z87.891 Personal history of nicotine dependence; I10 Essential (primary) hypertension; E78.5 Hyperlipidemia, unspecified; J44.9 Chronic obstructive pulmonary disease, unspecified; G62.9 Polyneuropathy, unspecified; F32.9 Major depressive disorder, single episode, unspecified; Z79.51 Long term (current) use of inhaled steroids; Z79.82 Long term (current) use of aspirin
CPT/HCPCS: 12345; 36415; 51702; 72100; 76000; 80053; 85025; 94640; 96372; 97116; 97161; 97530; C1713; C9359; G0378; J0131; J0330; J0690; J1100; J1644; J1650; J2270; J2370; J2405; J2704; J3010; J3370; J3490; J3535; J7030

== ENCOUNTER → 2020-11-09 09:56 | Outpatient (BNVA) | payer MEDICARE, OTHER, SELFPAY | PROVIDERS: PCP Nurse Practitioner Family; Visit Provider Orthopaedic Surgery | DX: M48.062 Spinal stenosis, lumbar region with neurogenic claudication (principal); Z48.89 Encounter for other specified surgical aftercare | CPT/HCPCS: 72100 ==

== ENCOUNTER → 2020-12-21 10:22 | Outpatient (BNVA) | payer MEDICARE, OTHER, SELFPAY | PROVIDERS: PCP Nurse Practitioner Family; Visit Provider Orthopaedic Surgery | DX: M48.062 Spinal stenosis, lumbar region with neurogenic claudication (principal); Z48.89 Encounter for other specified surgical aftercare | CPT/HCPCS: 72100 ==

== ENCOUNTER → 2021-03-22 09:28 | Outpatient (BNVA) | payer MEDICARE, SELFPAY | PROVIDERS: PCP Nurse Practitioner Family; Visit Provider Orthopaedic Surgery | DX: M48.062 Spinal stenosis, lumbar region with neurogenic claudication (principal); Z48.89 Encounter for other specified surgical aftercare; M54.9 Dorsalgia, unspecified | CPT/HCPCS: 72100 ==

== ENCOUNTER 2021-08-16 11:52 | Outpatient (CLI) | payer MEDICARE, SELFPAY ==
--- NOTE | 2021-08-16 13:00 | XR_ITS ---
WS: [id number] LUMBAR SPINE: 2 VIEWS TECHNIQUE: AP and lateral, standing. HISTORY: Z48.89 - Encounter for other specified surgical aftercare COMPARISON: 03/22/2021 Mild RIGHT curvature lower thoracic and lumbar spine. Similar to the prior study. Mild increase in the lumbar lordosis. 3 to 4 mm retrolisthesis of L1 and L2. Similar to the prior [facility] dy. Posterior lumbar fusion from L4 to S1 bilaterally with no change in alignment. No fractures within th e hardware. Interbody spacers maintain the disc space at L4-5 and L5-S1. The alignment at L5-S1 is di fficult to evaluate as there is severe loss of the disc space and overlying bony sclerosis. No interv al change is apparent. Laminectomy defects at L4 and L5. SI joints are symmetric bilaterally. No soft tissue abnormalities. Moderate atherosclerosis aorta. XR/XR lumbar spine 2-3V* [id number] IMPRESSION: 1. Stable appearance of the posterior lumbar fusion from L4 to S1 with interbo dy spacers at L4-5 and L5-S1. 2. No hardware fracture. 3. Stable minimal retrolisthesis of L1 and L2.
== END 2021-08-16 11:53 | disposition home or self-care (01) ==
PROVIDERS: PCP Nurse Practitioner Family; Visit Provider Orthopaedic Surgery
DX: Z48.89 Encounter for other specified surgical aftercare (principal); M54.50 Low back pain, unspecified
CPT/HCPCS: 72100

== ENCOUNTER → 2023-06-19 13:00 | Outpatient (BNVA) | payer MEDICARE, MEDICAID, SELFPAY | PROVIDERS: PCP Nurse Practitioner Family; Referring Provider Nurse Practitioner Family; Visit Provider Student in an Organized Health Care Education/Training Program | DX: M17.12 Unilateral primary osteoarthritis, left knee; Z46.89 Encounter for fitting and adjustment of other specified devices; M25.562 Pain in left knee | CPT/HCPCS: 73560; 73565; 97760; 99213; L1851 ==

== ENCOUNTER 2023-06-19 15:19 | Outpatient (CLI) | payer MEDICARE, MEDICAID, SELFPAY | END 2023-06-19 15:20 | disposition home or self-care (01) | LOC: SPT 15:20 | PROVIDERS: PCP Nurse Practitioner Family; Visit Provider Student in an Organized Health Care Education/Training Program | DX: Z46.89 Encounter for fitting and adjustment of other specified devices (principal); M25.562 Pain in left knee | CPT/HCPCS: 97760; 99213; L1851 ==

== ENCOUNTER → 2023-11-16 09:06 | Outpatient (BNVA) | payer MEDICARE, MEDICAID, SELFPAY | PROVIDERS: PCP Nurse Practitioner Family; Visit Provider Podiatrist Foot & Ankle Surgery | DX: L60.3 Nail dystrophy (principal); G62.9 Polyneuropathy, unspecified; B35.3 Tinea pedis; E11.42 Type 2 diabetes mellitus with diabetic polyneuropathy | CPT/HCPCS: 11721; 99203 ==

== ENCOUNTER 2024-09-13 13:45 | Emergency (ER) | payer MEDICARE, MEDICAID, SELFPAY ==
[2024-09-13] VITALS (9 sets, daily range): BP systolic 111–154; BP diastolic 66–91; PULSE 64–88; RESP 16–20; TEMP 36.8; O2SAT 91–98; BMI 41.8
--- NOTE | 2024-09-13 13:56 | XRR_ITS ---
PROCEDURE INFORMATION: Exam: XR Left Ankle Exam date and time: 09/13/2024 2:20 PM Age: 69 years old Clinical indication: Left; Patient HX: Lt ankle pain/deformity post fall TECHNIQUE: Imaging protocol: Radiologic exam of the left ankle. Views: 1 or 2 views. AP and Lateral COMPARISON: CR XR knees AP WB w LT lmt ORTH 06/19/2023 1:03 PM FINDINGS: Bones/joints: Trimalleolar fractures are identified within the ankle. Fractures involving the medial malleolus, posterior malleolus and distal fibula. Medial angulation of the left ankle articulation. Distal tibia is displaced 12 mm medially an approximate 21 mm anteriorly. Multiple comminuted fractures in the distal tibia. Posterior malleolus is displaced by approximately 14 mm. Multiple comminuted fractures involving the distal diaphysis of the fibula with bony displacement measuring up to 15 mm. Adjacent severe edema. Mild to moderate generalized bony degenerative changes. Bony structures appear otherwise unremarkable. Soft tissues: The soft tissues appear otherwise unremarkable. Notes: If there is further concern, recommend follow-up radiographs or MRI for complete assessment. XR/XR ankle LT 2V [id number] IMPRESSION: Trimalleolar ankle fractures, as described above. Severe soft tissue edema.
--- NOTE | 2024-09-13 14:08 | ED_ITS ---
HPI - Extremity Problem General: Chief complaint: Extremity Injury, Lower Stated complaint: L ankle deformity Time Seen by Provider: 09/13/24 13:55 History of Present Illness: 69-year-old male presents emergency room via EMS with obvious deformity to left ankle he fell and he slipped on the ice no other injuries. He is not on any anticoagulants he last ate this morning. Associated symptoms: Deny chest pain or fever(s) Related Data Home Medications Medication Instructions Recorded Confirmed amlodipine 10 mg tablet 10 mg PO DAILY 06/29/20 11/16/23 atorvastatin 40 mg tablet 40 mg PO DAILY 06/29/20 11/16/23 clonazepam 1 mg tablet 1 mg PO .prn 06/29/20 11/16/23 diphenoxylate-atropine 2.5 10 ml PO BID PRN Acid Reflux 06/29/20 11/16/23 mg-0.025 mg/5 mL oral liquid adalimumab 40 mg/0.8 mL 40 mg SUBCUT Q14D 07/13/20 11/16/23 subcutaneous pen kit (Humira Pen Crohn's-[facility] Colitis-[facility] Sup Starter) albuterol sulfate 90 mcg/actuation 1 inh inhalation QID 07/13/20 11/16/23 aerosol inhaler (ProAir HFA) gabapentin 600 mg tablet 1,500 mg PO BID 07/13/20 11/16/23 hydrochlorothiazide 25 mg tablet 25 mg PO DAILY 07/13/20 11/16/23 methocarbamol 750 mg tablet 750 mg PO Q8H 07/13/20 11/16/23 (Robaxin-750) metoprolol tartrate 25 mg tablet 25 mg PO DAILY 07/13/20 11/16/23 sulfasalazine 500 mg tablet 1 g PO QID 07/13/20 11/16/23 aspirin 81 mg tablet,delayed 81 mg PO DAILY 09/20/20 11/16/23 release azathioprine 50 mg tablet 300 mg PO DAILY 09/20/20 11/16/23 ergocalciferol (vitamin D2) 1,250 1,250 mcg PO DAILY 09/20/20 11/16/23 mcg (50,000 unit) capsule (Vitamin D2) fluoxetine 40 mg capsule 40 mg PO DAILY 09/20/20 11/16/23 folic acid 1 mg tablet 1 mg PO DAILY 09/20/20 11/16/23 loratadine 10 mg tablet 10 mg PO DAILY 09/20/20 11/16/23 losartan 100 mg tablet 100 mg PO DAILY 09/20/20 11/16/23 montelukast 10 mg tablet 10 mg PO DAILY 09/20/20 11/16/23 omega-3 fatty acids 1,000 mg PO DAILY 09/20/20 11/16/23 spironolactone 25 mg tablet 25 mg PO DAILY 09/20/20 11/16/23 tiotropium bromide 18 mcg capsule 1 cap inhalation DAILY 09/20/20 11/16/23 with inhalation device (Spiriva with HandiHaler) triamcinolone acetonide 0.1 % 1 applic topical BID 09/20/20 11/16/23 topical ointment clonazepam 0.5 mg tablet 0.25 mg PO BID 06/19/23 11/16/23 escitalopram oxalate 5 mg tablet 5 mg PO DAILY 06/19/23 11/16/23 ferrous gluconate 240 mg (27 mg 240 mg PO DAILY 06/19/23 11/16/23 iron) tablet (Ferate) omega 4-pdh-wga-fish oil 1,000 mg 1 cap PO DAILY 06/19/23 11/16/23 (120 mg-180 mg) capsule (Fish Oil) Previous Rx's Medication Instructions Recorded hydrocodone 5 mg-acetaminophen 325 1 - 2 tab PO .Q4-6H #40 tabs 09/23/20 mg tablet Medial Executive Relations Specialist Brace #1 ea 06/19/23 hyaluronate sodium, stabilized 60 60 mg (3 mL) intra-articular ONCE 06/26/23 mg/3 mL intra-articular syringe #3 mL (Durolane) Diabetic shoes with 3 inserts #1 ea 11/16/23 clotrimazole-betamethasone 1 1 applic topical BID 4 weeks #45 11/16/23 %-0.05 % topical cream grams hydrocodone 5 mg-acetaminophen 325 1 tab PO Q6H PRN pain #20 tabs 09/13/24 mg tablet Allergies Allergy/AdvReac Type Severity Reaction Status Date / Time No Known Allergies Allergy Unknown Verified 11/16/23 09:16 Review of Systems Const: Denies: fever(s) or chills Card: Denies: chest pain Resp: Denies: dyspnea GI: Denies: abdominal pain Musc: Denies: neck pain or back pain [facility] ED PFSH: Medical History Depression Neuropathy COPD (chronic obstructive pulmonary disease) Hypertension Hyperlipidemia Surgical History History of back surgery Social History Alcohol intake: never Substance/Drug Use: never Physical Exam Const: COMMON NORMALS: no acute distress GENERAL APPEARANCE: cooperative and comfortable ORIENTATION/CONSCIOUSNESS: Yes awake, Yes oriented to person, Yes oriented to place and Yes oriented to time HENMT: COMMON NORMALS: normocephalic, atraumatic and hearing grossly normal bilaterally HEAD & SCALP: normocephalic and atraumatic Resp: COMMON NORMALS: normal respiratory effort, No retractions, No use of accessory muscles and clear to auscultation bilaterally AUSCULTATION: clear to auscultation bilaterally Cardio: COMMON NORMALS: regular rate, regular rhythm and No murmurs present (Cardio) RATE: regular rate RHYTHM: regular rhythm Extremity: OTHER: Obvious deformity of the left ankle with inversion ankle injury. Neuro: SENSORIUM/ORIENTATION: Yes oriented to person, Yes oriented to place and Yes oriented to time Skin: COMMON NORMALS: no rashes or lesions noted GENERAL SKIN EXAM: no rashes or lesions noted Procedures Orthopedic Fracture Reduction Fracture #1: Time Out Performed: Yes Side: left Fracture Reduction Location: other Analgesia: procedural sedation Technique: direct manipulation Post Reduction X-rays Demonstrate: anatomical reduction Post-reduction neuro exam: intact Post-reduction vascular exam: intact Splint Applied: Yes Patient Tolerated Procedure: well Procedural Sedation Indication: fracture/dislocation reduction ASA Class: I Preparation: environmental monitoring technician applied, pulse oximeter, supplemental O2 applied, suction/airway equipment at bedside and IV secured IV Etomidate dose (mg): 10 Patient Tolerated Procedure: well Complications: none Course Vital Signs: Vital signs: Vital Signs Temperature 98.2 F 09/13/24 13:51 Pulse Rate 70 09/13/24 16:53 Respiratory Rate 20 H 09/13/24 16:59 Blood Pressure 136/80 09/13/24 16:53 Pulse Oximetry 98 09/13/24 16:59 Oxygen Delivery Me thod Room Air 09/13/24 16:53 MDM - Extremity (Nontraumatic) Medical Decision Making Obvious fracture on arrival x-ray confirms. Under procedural sedation reduced posterior splint applied and sugar-tong applied to stabilize fracture discussed Dr. Armstrong who is on-call for podiatry he concurs can be discharged home nonweightbearing pain medications and follow-up next week with podiatry. Medical Records I reviewed the patient's medical records. Lab Data I reviewed the patient's lab results. Radiology Impressions Ankle X-Ray 09/13/24 15:11 IMPRESSION: Trimalleolar ankle fractures, as described above. Improved anatomic alignment. All radiology interpretation(s) finalized by discharge Discharge Plan Discharge Patient Disposition: Home Clinical Impression: Closed left trimalleolar fracture Condition: Stable Prescriptions: New hydrocodone-acetaminophen 5-325 mg tablet 1 tab PO Q6H PRN (Reason: pain) Qty: 20 0RF No Action amlodipine 10 mg tablet 10 mg PO DAILY atorvastatin 40 mg tablet 40 mg PO DAILY clonazepam 1 mg tablet 1 mg PO .prn diphenoxylate-atropine 2.5-0.025 mg/5 mL liquid 10 ml PO BID PRN (Reason: Acid Reflux) gabapentin 600 mg tablet 1,500 mg PO BID Humira Pen [id number] Start 40 mg/0.8 mL pen injector kit 40 mg SUBCUT Q14D Rx Instructions: start on day 29 of therapy hydrochlorothiazide 25 mg tablet 25 mg PO DAILY methocarbamol [Robaxin-750] 750 mg tablet 750 mg PO Q8H metoprolol tartrate 25 mg tablet 25 mg PO DAILY sulfasalazine 500 mg tablet 1 g PO QID Rx Instructions: give with food (meal/snack) albuterol sulfate [ProAir HFA] 90 mcg/actuation HFA aerosol inhaler 1 inh inhalation QID clonazepam 0.5 mg tablet 0.25 mg PO BID escitalopram oxalate 5 mg tablet 5 mg PO DAILY omega 4-her-ghq-fish oil [Fish Oil] 1,000 mg (120 mg-180 mg) capsule 1 cap PO DAILY ferrous gluconate [Ferate] 240 mg (27 mg iron) tablet 240 mg PO DAILY (DME) Medial Executive Relations Specialist Brace See Rx Instructions .Route .MEDSUPPLY Qty: 1 0RF Rx Instructions: As directed Durolane 60 mg/3 mL syringe 60 mg intra-articular ONCE Qty: 3 0RF clotrimazole-betamethasone 1-0.05 % cream 1 applic topical BID 28 Days Qty: 45 0RF (DME) Diabetic shoes with 3 inserts See Rx Instructions .Route .MEDSUPPLY Qty: 1 0RF Rx Instructions: As directed to HOME fluoxetine 40 mg Capsule 40 mg PO DAILY azathioprine 50 mg tablet 300 mg PO DAILY aspirin 81 mg Tablet,Delayed Release (Dr/Ec) 81 mg PO DAILY spironolactone 25 mg Tablet 25 mg PO DAILY triamcinolone acetonide 0.1 % ointment 1 applic TOPICAL BID folic acid 1 mg Tablet 1 mg PO DAILY montelukast 10 mg Tablet 10 mg PO DAILY ergocalciferol (vitamin D2) [Vitamin D2] 1,250 mcg (50,000 unit) Capsule 1,250 mcg PO DAILY losartan 100 mg Tablet 100 mg PO DAILY loratadine 10 mg Tablet 10 mg PO DAILY omega-3 fatty acids Capsule 1,000 mg PO DAILY Spiriva with HandiHaler 18 mcg Capsule, W/Inhalation Device 1 cap INHALATION DAILY hydrocodone-acetaminophen 5-325 mg tablet 1 - 2 tab PO .Q4-6H Qty: 40 0RF Discharge Orders: Discharge ED (Routine); Ordered 09/13/24 Ordered By: Westley Cerda Other Ambulatory Orders: DME: Wheelchair (Order) Location: None Selected Ordered By: Westley Cerda Referrals: Kody Neville DPM [Physician] - Discharge Diet: Usual diet Discharge Activity: Limit activity as instructed Patient Instructions: Opioid Safety, Pain Management Activity Restrictions/Additional Instructions: Thank you for choosing [facility] for your healthcare needs today. It is very important that you follow up as instructed or that you return to the Emergency Department should you have concerns or if your condition changes or worsens in any way. Follow-up with Dr. Neville next week. Nonweightbearing on the left leg completely. Elevate leg apply ice as needed for pain and swelling pain medications as needed Coding Level of Care Code ED Certified Meeting Professional for Paul Soria
--- NOTE | 2024-09-13 15:11 | XRR_ITS ---
PROCEDURE INFORMATION: Exam: XR Left Ankle Exam date and time: 09/13/2024 3:12 PM Age: 69 years old Clinical indication: Pain; Left; Patient HX: Lt ankle post reduction TECHNIQUE: Imaging protocol: Radiologic exam of the left ankle. Views: 1 or 2 views. AP and Lateral COMPARISON: CR (LOW EXM, ) 09/13/2024 2:20 PM FINDINGS: Bones/joints: Trimalleolar fractures are identified within the ankle. Fractures involving the medial malleolus, posterior malleolus and distal fibula. Improved anatomic alignment is demonstrated since prior imaging. There is still persistent bony displacement involving all 3 malleoli fractures. Mild to moderate generalized bony degenerative changes. Bony structures appear otherwise unremarkable. Soft tissues: Severe soft tissue edema identified throughout the left ankle and left lower leg. The soft tissues appear otherwise unremarkable. Notes: If there is further concern, recommend follow-up radiographs or MRI for complete assessment. XR/XR ankle LT 2V [id number] IMPRESSION: Trimalleolar ankle fractures, as described above. Improved anatomic alignment.
[2024-09-13] MEDS: etomidate 2 mg/mL INJ SDV 10 mL 10 MG IVP (15:12)
[2024-09-13] MEDS: morphine 4 mg/mL SDV 1 mL IVP (15:33)
--- NOTE | 2024-09-13 16:52 | PC.NURSE ---
per verbal order from dr. martinez, order and administer Dilaudid 0.5mg IVP ONCE
[2024-09-13] MEDS: HYDROmorphone 1 mg/mL INJ 1 mL 0.5 MG IVP (16:59)
--- NOTE | 2024-09-13 17:20 | PC.NURSE ---
WASTED ETOMIDATE 10MG (5ML) WITH MARY LARA RN.
--- NOTE | 2024-09-15 09:18 | DCPLANNER ---
messaged podiatry for er f/u
== END 2024-09-13 19:27 | disposition home or self-care (01) ==
PROVIDERS: Emergency Provider Family Medicine; PCP Nurse Practitioner Family
DX: S82.852A Displaced trimalleolar fracture of left lower leg, initial encounter for closed fracture (principal); Z79.82 Long term (current) use of aspirin; J44.9 Chronic obstructive pulmonary disease, unspecified; E78.5 Hyperlipidemia, unspecified; I10 Essential (primary) hypertension; W00.0XXA Fall on same level due to ice and snow, initial encounter
CPT/HCPCS: 27818; 73600; 96374; 96375; 99152; 99285; E0114; J1171; J2270; J3490

== ENCOUNTER → 2024-09-18 15:59 | Outpatient (BNVA) | payer MEDICARE, MEDICAID, SELFPAY | PROVIDERS: PCP Nurse Practitioner Family; Visit Provider Podiatrist Foot & Ankle Surgery | DX: G62.9 Polyneuropathy, unspecified; S82.852A Displaced trimalleolar fracture of left lower leg, initial encounter for closed fracture; E11.42 Type 2 diabetes mellitus with diabetic polyneuropathy; W00.0XXA Fall on same level due to ice and snow, initial encounter | CPT/HCPCS: 99214 ==

== ENCOUNTER 2024-09-25 10:28 | Day surgery (SDC) | payer MEDICARE, MEDICAID, SELFPAY ==
[2024-09-25] VITALS (10 sets, daily range): BP systolic 111–163; BP diastolic 63–84; PULSE 78–93; RESP 17–20; TEMP 36.1–36.7; O2SAT 92–98; BMI 41.8
--- NOTE | 2024-09-25 | XR_ITS ---
WS: [id number] Left ankle, C-arm fluoroscopy views, 09/25/2024 Clinical Data: JELLY IMAGES Comparison: Left ankle, 09/13/2024 Findings: Dr. Neville performed internal fixation of a trimalleolar fracture of the left ankle. XR/XR ankle LT 2V [id number] Impression: Internal fixation of trimalleolar fracture.
[2024-09-25] MEDS: gabapentin 300 mg Capsule PO (11:23)
[2024-09-25] MEDS: CELEcoxib 200 mg Capsule 400 MG PO (11:23)
[2024-09-25] MEDS: sodium chloride 0.9% 1,000 ML 30 ML IV (11:23)
--- NOTE | 2024-09-25 11:50 | ANES.PREANE2 ---
Pre-Anesthetic Assessment Height/Weight: Height 5 ft 11 in Weight 300 lb Temp Pulse Resp BP Pulse Ox O2 Del Method 97.9 F 78 18 163/75 94 Room Air 09/25/24 10:59 09/25/24 10:59 09/25/24 10:59 09/25/24 10:59 09/25/24 10:59 09/25/24 11:08 Preop Diagnosis: Left trimalleolar ankle fracture Operation Date: 09/25/24 12:00 Proposed Procedures p ORIF Ankle ORIF Trimalleolar Fracture(Left) - Kody Neville DPM s Ankle Arthroscopy(Left) - Kody Neville DPM Was Beta Saleem taken within 24 hours: Yes Was Clonidine taken within 24 hours: N/A Last intake: Intake Last Liquid Date 09/25/24 Last Liquid Time 20:00 Last Solid Date 09/24/24 Last Solid Time 20:00 Social No alcohol and No tobacco Exam alert, oriented x 3, clear to auscultation bilaterally and regular rate & rhythm Airway Submandibular: within normal limits Cervical ROM: within normal limits Mallampati: Class III Comments: Comments: edentulous Anesthetic Plan ASA status: 3 Anesthesia: General Other: No prior issues with anesthesia NPO since yesterday History of hypertension on losartan, amlodipine, HCTZ and metoprolol. BP 163/75 COPD, controlled with inhalers Type 2 diabetes no home insulin. Plan for general anesthesia with post induction block Medications/Allergies Home Medications Medication Instructions Recorded Confirmed Last Taken Type amlodipine 10 mg tablet 10 mg PO DAILY 06/29/20 09/24/24 09/24/24 History atorvastatin 40 mg tablet 40 mg PO DAILY 06/29/20 09/24/24 09/24/24 History diphenoxylate-atropine 2.5 10 ml PO BID PRN Acid Reflux 06/29/20 09/24/24 09/21/20 History mg-0.025 mg/5 mL oral liquid adalimumab 40 mg/0.8 mL 40 mg SUBCUT Q14D 07/13/20 09/24/24 09/14/20 History subcutaneous pen kit (Humira Pen Crohn's-[facility] Colitis-[facility] Sup Starter) albuterol sulfate 90 mcg/actuation 1 inh inhalation QID 07/13/20 09/24/24 09/24/24 History aerosol inhaler (ProAir HFA) gabapentin 600 mg tablet 1,500 mg PO BID 07/13/20 09/24/24 09/24/24 History hydrochlorothiazide 25 mg tablet 25 mg PO DAILY 07/13/20 09/24/24 09/24/24 History methocarbamol 750 mg tablet 750 mg PO Q8H 07/13/20 09/24/24 09/24/24 History (Robaxin-750) metoprolol tartrate 25 mg tablet 25 mg PO DAILY 07/13/20 09/25/24 09/25/24 07:00 History sulfasalazine 500 mg tablet 1 g PO QID 07/13/20 09/24/24 09/24/24 History aspirin 81 mg tablet,delayed 81 mg PO DAILY 09/20/20 09/24/24 09/24/24 History release azathioprine 50 mg tablet 300 mg PO DAILY 09/20/20 09/24/24 09/24/24 History folic acid 1 mg tablet 1 mg PO DAILY 09/20/20 09/24/24 09/24/24 History loratadine 10 mg tablet 10 mg PO DAILY 09/20/20 09/24/24 09/24/24 History losartan 100 mg tablet 100 mg PO DAILY 09/20/20 09/24/24 09/24/24 History montelukast 10 mg tablet 10 mg PO DAILY 09/20/20 09/24/24 09/24/24 History spironolactone 25 mg tablet 25 mg PO DAILY 09/20/20 09/24/24 09/24/24 History tiotropium bromide 18 mcg capsule 1 cap inhalation DAILY 09/20/20 09/24/24 09/24/24 History with inhalation device (Spiriva with HandiHaler) triamcinolone acetonide 0.1 % 1 applic topical BID PRN Rash 09/20/20 09/24/24 Unknown History topical ointment Medial Clinical Laboratory Medical Director Brace #1 ea 06/19/23 09/18/24 Unknown Rx clonazepam 0.5 mg tablet 0.5 mg PO DAILY 06/19/23 09/24/24 09/24/24 History escitalopram oxalate 5 mg tablet 5 mg PO DAILY 06/19/23 09/24/24 09/24/24 History ferrous gluconate 240 mg (27 mg 240 mg PO DAILY 06/19/23 09/24/24 09/24/24 History iron) tablet (Ferate) omega 7-mlx-cpr-fish oil 1,000 mg 1 cap PO DAILY 06/19/23 09/24/24 09/24/24 History (120 mg-180 mg) capsule (Fish Oil) Diabetic shoes with 3 inserts #1 ea 11/16/23 09/18/24 Unknown Rx hydrocodone 5 mg-acetaminophen 325 1 tab PO Q6H PRN pain #20 tabs 09/13/24 09/25/24 09/25/24 07:30 Rx mg tablet clotrimazole-betamethasone 1 1 applic topical BID PRN Rash 09/24/24 09/24/24 Unknown History %-0.05 % topical cream hydrocodone 10 mg-acetaminophen 1 tab PO Q6H PRN pain #28 tabs 09/25/24 Unknown Rx 325 mg tablet Allergies Allergy/AdvReac Type Severity Reaction Status Date / Time No Known Allergies Allergy Unknown Verified 09/18/24 16:22 Current Medications Generic Name Dose Route Start Last Admin Trade Name Freq PRN Reason Stop Dose Admin Sodium Chloride 1,000 mls @ 30 mls/hr 09/25/24 10:45 09/25/24 11:23 Sodium Chloride 0.9% IV 09/26/24 10:44 30 mls/hr .Q24H JAVID Administration PFSH Anesthesia Medical History Depression Neuropathy COPD (chronic obstructive pulmonary disease) Hypertension Hyperlipidemia Surgical History History of back surgery Social History Smoking and tobacco/nicotine status: unknown if used tobacco/nicotine Alcohol intake: never Substance/Drug Use: never Data Anesthesia Cardiac Studies: No Data to Display
--- NOTE | 2024-09-25 11:55 | P.HPUD_ITS ---
Surgery/Procedure H&P Update DATE OF PROCEDURE: September 25, 2024 DATE H&P PERFORMED: 09/18/24 H&P UPDATE INFORMATION: I have reviewed H&P completed within last 30 days, I have examined patient prior to procedure, No changes to prior documentation and [place] is [place] [facility] date indicated PREOP DIAGNOSIS: Left trimalleolar ankle fracture PLANNED PROCEDURE: Operation Date: 09/25/24 12:00 Proposed Procedures p ORIF Ankle ORIF Trimalleolar Fracture(Left) - Kody Neville DPM s Ankle Arthroscopy(Left) - Kody Neville DPM
[2024-09-25] MEDS: ceFAZolin 3,000 MG in sodium chloride 0.9% (plus) 100 ML 200 MG IV (12:05)
--- NOTE | 2024-09-25 12:19 | ANES.PROC ---
Anesthesia Procedures Procedure/Date: 09/25/24 Nerve Block ^: Nerve Block 1: Main Anesthesia: general anesthesia Time Out Performed: Yes Consent: requested by attending/covering physician and from patient Nerve block location: popliteal Nerve block position: supine Anesthetic Used: ropivicaine 0.5% Amount of anesthesia used (mL): 20 Ultrasound used to: recognize landmarks Interscalene/Femoral BLK: other needle (pjunk 4inch) Injection: neg aspiration of heme Patient Tolerated Procedure: well Complications: none Nerve Block 2: Main Anesthesia: general anesthesia Time Out Performed: Yes Consent: requested by attending/covering physician and from patient Nerve block location: adductor canal Anesthesia monitors applied: pulse oximetry, EKG, BP cuff and oxygen Nerve block position: supine Anesthetic Used: ropivicaine 0.5% Amount of anesthesia used (mL): 15 Ultrasound used to: recognize landmarks Nerve Stimulator Used?: Yes Interscalene/Femoral BLK: other needle (pjunk 4inch) Injection: neg aspiration of heme Patient Tolerated Procedure: well Complications: none
--- NOTE | 2024-09-25 14:10 | P.BOP_ITS ---
Date of procedure: 09/25/2024 Surgeon name: Latesha JeffersPJeanette Recycling Operations Manager(s) name(s): Ly Marcus Procedure(s) performed: ORIF left trimalleolar ankle fracture Description of findings: Left trimalleolar ankle fracture Estimated blood loss: 15 cc Tourniquet time: 110 minutes Specimen(s) removed: None Post-operative diagnosis: Left trimalleolar ankle fracture
--- NOTE | 2024-09-25 14:11 | PM.OP ---
Operative Report Date of procedure: September 25, 2024 Surgeon: Kody Neville DPM Procedure: Date of procedure: 09/25/24 Pre-op diagnosis: Left trimalleolar marcella fracture Post-op diagnosis: same Post-op findings: Left trimalleolar ankle fracture Procedure done: 1. ORIF left trimalleolar ankle fracture CPT 40857 2. Left ankle arthroscopy CPT 47299 Implants: Anatomic fibuar plate, tight rope arthrex medical Specimens removed: none Surgeon: Dr. Kody Neville DPM [employer] Consultant: Ly Marcus Estimated blood loss: 15cc Tourniquet time: 110 minutes Complications: None Patient is a 69-year-old male that has a history of left trimalleolar ankle fracture. The extent of the injury necessitates ORIF. A lengthy discussion regarding the procedure, including risks and complications has been had with the patient and is noted in the recent clinic note. Written and verbal consent have been obtained. All patient questions have been answered to the patient?s satisfaction. No written or verbal guarantees have been given or implied. The patient has been NPO since midnight. The history has been reviewed and the history and physical is current. The signed consent was confirmed and placed in the patient chart. Patient imaging has been reviewed and is consistent with the diagnosis. Under mild sedation, the patient was brought into the operating room and placed on the table in the supine position. IV antibiotics were given by the anesthesia team as preoperative surgical prophylaxis. General sedation was then performed by the anesthesiateam. A popliteal block was performed by anesthesia department. A pneumatic tourniquet was then placed about the left thigh. The operative extremity was then prepped and draped in the usual fashion. The extremity was then elevated and exsanguinated before the tourniquet was inflated to 325mmHg. After inflation, the following procedure was then performed. Attention was directed to the anterior aspect of the left ankle where an 18-gauge needle was used to insufflate the ankle joint using 10 cc of sterile saline. After insufflation of the joint a #15 blade was used to incise the anteromedial portion of the ankle to establish the portal for arthroscopy. Mosquito hemostat was used to Nadia dissect down to the level of the ankle joint capsule which was pierced to allow entrance for the trocar cannula. These were inserted into the anteromedial portal and the anterolateral portal was also established. 2.0 shaver was inserted into the anterolateral portal. There was noted to be extensive synovitis and hematoma formation within the ankle joint. This was debrided using the 2.0 shaver. The ankle joint was evaluated and no visible osteochondral defect was noted. Gross disruption of the syndesmosis distally was noted. The arthroscope and shaver were removed from the ankle joint and the portals were closed using 4-0 nylon in horizontal mattress fashion. Attention was directed to the lateral aspect of the left ankle where a 10 cm incision was made using a #15 blade. Dissection was carried down through subcutaneous and superficial fascia to the level of the periosteum which was incised to expose the underlying fibular fracture. It was noted to be comminuted in 2 pieces. Care was taken to remove hematoma formation surrounding these fracture pieces. Reduction clamp was used to maintain anatomic position. A long anatomic fibular plate was then positioned to the lateral aspect of the fibula. The distal holes in the plate were filled with 2.7 locking screws in the proximal holes of the plate were filled with combination of 3.5 locking and nonlocking screws. The posterior spike was then cinched down using tight rope and cerclage like fashion. Good positioning of the fibula was noted with appropriate anatomic position. Attention was then directed to the medial aspect of the left ankle where a 5 cm incision was made overlying the medial malleolus. Dissection was carried down through subcutaneous and superficial fascia to expose the underlying medial malleolus fracture. Periosteum was noted to be invaginated in the fracture site. This was removed and the medial malleolus was reduced using [id number] reduction. Two 4.0 cannulated headed screws were then inserted over the fracture site of the medial malleolus to maintain position. Syndesmosis was grossly unstable. A tight rope was used to reduce the syndesmosis to appropriate anatomic position. Final imaging revealed appropriate anatomic alignment of left ankle. All incision sites were irrigated with copious amounts of sterile saline before attention was directed to closure. Deep tissue was closed with 2-0 Vicryl followed by subcuticular closure with 3-0 Vicryl and skin closure with skin jannette. Incision sites were dressed with Xeroform, 4 x 4 gauze, Kerlix, Yaw. The tourniquet was let down and good hyperemic response was noted to all digits of the left foot. The patient tolerated the procedure and anesthesia well and without complication. The patient was transported from the operating room to the recovery room with vital signs stable and vascular status intact to all digits of the left foot. Thepatient was given both written and verbal instructions to remain nonweightbearing to the operative extremity, to keep dressings/splint clean, dry and intact and to take pain medication as directed. The patient will follow-up in the outpatient setting at their scheduledappointment. The patient was discharged with my personal number and was instructed to call if any questions or issues should arise. They were discharged home once anesthesia criteria was met.
== END 2024-09-25 15:58 | disposition home or self-care (01) ==
PROVIDERS: PCP Nurse Practitioner Family; Visit Provider Podiatrist Foot & Ankle Surgery
PROC: (CPT 27822; principal; 2024-09-25 12:00)
PROC: (CPT 27822; 2024-09-25 12:00)
DX: S82.852A Displaced trimalleolar fracture of left lower leg, initial encounter for closed fracture (principal); X58.XXXA Exposure to other specified factors, initial encounter; I10 Essential (primary) hypertension; J44.9 Chronic obstructive pulmonary disease, unspecified; E11.9 Type 2 diabetes mellitus without complications; Z79.4 Long term (current) use of insulin; E78.5 Hyperlipidemia, unspecified
CPT/HCPCS: 27822; 29897; 73600; 76000; C1713; J0690; J1100; J2405; J2704; J3010; J7030

== ENCOUNTER → 2024-10-02 13:47 | Outpatient (BNVA) | payer MEDICARE, MEDICAID, SELFPAY | PROVIDERS: PCP Nurse Practitioner Family; Visit Provider Podiatrist Foot & Ankle Surgery | DX: S82.852D Displaced trimalleolar fracture of left lower leg, subsequent encounter for closed fracture with routine healing (principal); E11.42 Type 2 diabetes mellitus with diabetic polyneuropathy; G62.9 Polyneuropathy, unspecified; X58.XXXD Exposure to other specified factors, subsequent encounter | CPT/HCPCS: 73610; 99024 ==

== ENCOUNTER → 2024-10-13 12:49 | Outpatient (BNVA) | payer MEDICARE, MEDICAID, SELFPAY | PROVIDERS: PCP Nurse Practitioner Family; Visit Provider Podiatrist Foot & Ankle Surgery | DX: S82.852A Displaced trimalleolar fracture of left lower leg, initial encounter for closed fracture (principal); E11.42 Type 2 diabetes mellitus with diabetic polyneuropathy; G62.9 Polyneuropathy, unspecified; X58.XXXA Exposure to other specified factors, initial encounter | CPT/HCPCS: 73610; 99024 ==

== ENCOUNTER → 2024-10-20 13:04 | Outpatient (BNVA) | payer MEDICARE, MEDICAID, SELFPAY | PROVIDERS: PCP Nurse Practitioner Family; Visit Provider Podiatrist Foot & Ankle Surgery | DX: S82.852D Displaced trimalleolar fracture of left lower leg, subsequent encounter for closed fracture with routine healing (principal); X58.XXXD Exposure to other specified factors, subsequent encounter; E11.42 Type 2 diabetes mellitus with diabetic polyneuropathy; G62.9 Polyneuropathy, unspecified | CPT/HCPCS: 73610; 99024 ==

== ENCOUNTER → 2024-11-03 12:38 | Outpatient (BNVA) | payer MEDICARE, MEDICAID, SELFPAY | PROVIDERS: PCP Nurse Practitioner Family; Visit Provider Podiatrist Foot & Ankle Surgery | DX: S82.852D Displaced trimalleolar fracture of left lower leg, subsequent encounter for closed fracture with routine healing (principal); Z98.890 Other specified postprocedural states; G62.9 Polyneuropathy, unspecified; X58.XXXD Exposure to other specified factors, subsequent encounter; E11.42 Type 2 diabetes mellitus with diabetic polyneuropathy | CPT/HCPCS: 73610; 99024 ==

== ENCOUNTER → 2024-11-17 14:43 | Outpatient (BNVA) | payer MEDICARE, MEDICAID, SELFPAY | PROVIDERS: PCP Nurse Practitioner Family; Visit Provider Podiatrist Foot & Ankle Surgery | DX: S82.852A Displaced trimalleolar fracture of left lower leg, initial encounter for closed fracture (principal); Z98.890 Other specified postprocedural states; E11.42 Type 2 diabetes mellitus with diabetic polyneuropathy; G62.9 Polyneuropathy, unspecified; X58.XXXA Exposure to other specified factors, initial encounter | CPT/HCPCS: 73610; 99024 ==

== ENCOUNTER → 2024-12-01 13:35 | Outpatient (BNVA) | payer MEDICARE, MEDICAID, SELFPAY | PROVIDERS: PCP Nurse Practitioner Family; Visit Provider Podiatrist Foot & Ankle Surgery | DX: S82.852D Displaced trimalleolar fracture of left lower leg, subsequent encounter for closed fracture with routine healing (principal); Z98.890 Other specified postprocedural states; E11.42 Type 2 diabetes mellitus with diabetic polyneuropathy; G62.9 Polyneuropathy, unspecified; X58.XXXD Exposure to other specified factors, subsequent encounter | CPT/HCPCS: 73610 ==

== ENCOUNTER 2024-12-01 14:15 | Outpatient (CLI) | payer MEDICARE, MEDICAID, SELFPAY | END 2024-12-01 14:16 | disposition home or self-care (01) | LOC: SPT 14:16 | PROVIDERS: PCP Nurse Practitioner Family; Visit Provider Podiatrist Foot & Ankle Surgery | DX: Z46.89 Encounter for fitting and adjustment of other specified devices (principal); S82.852D Displaced trimalleolar fracture of left lower leg, subsequent encounter for closed fracture with routine healing; X58.XXXD Exposure to other specified factors, subsequent encounter | CPT/HCPCS: L1902 ==

== ENCOUNTER → 2024-12-22 12:32 | Outpatient (BNVA) | payer MEDICARE, MEDICAID, SELFPAY | PROVIDERS: PCP Nurse Practitioner Family; Visit Provider Podiatrist Foot & Ankle Surgery | DX: Z98.890 Other specified postprocedural states (principal); G62.9 Polyneuropathy, unspecified; E11.42 Type 2 diabetes mellitus with diabetic polyneuropathy; S82.852D Displaced trimalleolar fracture of left lower leg, subsequent encounter for closed fracture with routine healing; X58.XXXD Exposure to other specified factors, subsequent encounter | CPT/HCPCS: 99024 ==